=== PATIENT | male | born 1990 | race Caucasian/White ===

== ENCOUNTER → 2020-02-24 10:41 | Outpatient (BNVA) | payer SELFPAY | PROVIDERS: Visit Provider Registered Nurse | DX: Z20.828 Contact with and (suspected) exposure to other viral communicable diseases (principal) | CPT/HCPCS: 87635 ==

== ENCOUNTER 2020-08-12 22:46 | Emergency (ER) | payer SELFPAY ==
[2020-08-12 22:54] VITALS: BP 120/78; PULSE 86; RESP 17; TEMP 36.5; O2SAT 99; BMI 31.2
--- NOTE | 2020-08-12 23:00 | XRR_ITS ---
PROCEDURE INFORMATION: Exam: XR Right Foot Exam date and time: 08/12/2020 11:40 PM Age: 30 years old Clinical indication: Injury or trauma; Other: Dropped a pallet on foot; Work related; Blunt trauma; Toes; Injury details: PT dropped a pallet on his right great toe TECHNIQUE: Imaging protocol: XR Right foot. Views: 3 or more views. COMPARISON: No relevant prior studies available. FINDINGS: Bones/joints: No acute displaced fracture or dislocation. The joint spaces are generally maintained. Bone mineralization is within normal limits for age. Soft tissues: No radiographic abnormalities. XR/XR foot RT min 3V* [id number] IMPRESSION: No acute displaced fracture or dislocation.
--- NOTE | 2020-08-12 23:24 | W.ED.EXTPRO ---
HPI - Extremity Problem General: Chief complaint: Extremity Injury, Lower Stated complaint: foot injury Time Seen by Provider: 08/12/20 23:23 History of Present Illness: HPI Narrative: Patient is a 30-year-old male comes to the ED with right foot injury. Patient says he was at work tonight and he was moving a pallet full of Gatorade and accidentally ran over his right foot. He says the palate wheel rolled over his great toe just proximal to nail bed. He is not sure if he has a cut or dry blood on great toe. That he is having pain in his great toe on right foot. Says he cannot move his great toe currently either. Associated symptoms: Deny chest pain, fever(s) or rash Review of Systems Const: Denies: fever(s), chills or fatigue Eyes: Denies: change in vision or eye discomfort ENMT: Denies: throat pain, odynophagia, nasal discharge or nasal congestion Card: Denies: chest pain, palpitations, edema, swelling of feet/ankles, dyspnea on exertion or orthopnea Resp: Denies: dyspnea, productive cough or non-productive cough GI: Denies: abdominal pain, nausea, vomiting, diarrhea, constipation or hematochezia : Denies: flank pain, difficulty urinating, dysuria or hematuria Musc: Reports: extremity pain (Right foot); Denies: neck pain, back pain or extremity swelling Skin/Breast: Denies: rash or new lesions Neuro: Denies: headache(s), numbness in extremities or weakness in extremities [facility] PFSH: Social History Smoking and tobacco status: current every day smoker Physical Exam Const: COMMON NORMALS: no acute distress, patient oriented x3, healthy appearing and alert GENERAL APPEARANCE: cooperative and comfortable HENMT: COMMON NORMALS: normocephalic HEAD & SCALP: normocephalic MOUTH: Normal oral and palatal mucosa present THROAT: posterior oropharynx normal and uvula midline Neck/C-Spine: COMMON NORMALS: supple GENERAL: Yes normal visual inspection Resp: COMMON NORMALS: normal respiratory effort, No retractions, No use of accessory muscles and clear to auscultation bilaterally AUSCULTATION: clear to auscultation bilaterally Cardio: COMMON NORMALS: regular rate, regular rhythm, S1 normal heart sound present, S2 normal heart sound present, No gallops present (Cardio), No clicks present (Cardio), No murmurs present (Cardio) and Peripheral pulses 2+ throughout RATE: regular rate RHYTHM: regular rhythm HEART SOUNDS: S1 normal heart sound present and S2 normal heart sound present PERIPHERAL PULSES: Peripheral pulses 2+ throughout GI: COMMON NORMALS: Normal to inspection, nondistended, normoactive bowel sounds present, Soft to palpation, non-tender and no masses PALPATION: Yes Soft to palpation : COMMON NORMALS: Yes no CVA tenderness BLADDER/KIDNEY EXAM: Yes no CVA tenderness Back/Pelvis: COMMON NORMALS: no CVA tenderness Extremity: RIGHT LOWER EXTREMITY: Yes foot & digits Right foot and digits: Yes inspection ( great toe dried blood, no lac. Mild swelling no deformity), Yes palpation (Tender to palpation over great toe), Yes ROM (Limited due to pain), Yes neurovascular exam (Intact) and Yes other (No nailbed damage seen.) Neuro: COMMON NORMALS: patient oriented x3 and moves all extremities SENSORIUM/ORIENTATION: Yes alert Skin: GENERAL SKIN EXAM: dry skin Course Vital Signs: Vital signs: Vital Signs Temperature 97.7 F 08/12/20 22:54 Pulse Rate 84 08/13/20 01:38 Respiratory Rate 18 08/13/20 01:38 Blood Pressure 122/76 08/13/20 01:38 Pulse Oximetry 98 08/13/20 01:38 MDM - Extremity (Nontraumatic) Imaging Data^: Xray Ortho: Attestation: I personally reviewed and interpreted this imaging study as follows: Radiologist's impression: [address] [address] XRay Report Signed Patient: Juan F Stout Unit #: [id number] : 1990 Age/Sex: 30 / M ADM Date: 08/12/20 Loc: ER Room/Bed: Attending Dr: Ordering Provider/Ordering MD: Arely Marie MD Date of Service: 08/12/20 Procedure(s): XR foot RT min 3V* [id number] Accession Number(s): [id number] Report Number: [id number] PROCEDURE INFORMATION: Exam: XR Right Foot Exam date and time: 08/12/2020 11:40 PM Age: 30 years old Clinical indication: Injury or trauma; Other: Dropped a pallet on foot; Work related; Blunt trauma; Toes; Injury details: PT dropped a pallet on his right great toe TECHNIQUE: Imaging protocol: XR Right foot. Views: 3 or more views. COMPARISON: No relevant prior studies available. FINDINGS: Bones/joints: No acute displaced fracture or dislocation. The joint spaces are generally maintained. Bone mineralization is within normal limits for age. Soft tissues: No radiographic abnormalities. XR/XR foot RT min 3V* [id number] IMPRESSION: No acute displaced fracture or dislocation. Dictated By: Tera Alcazar Signed By: Tera Alcazar Signed Date/Time: 08/13/2021 DD/ Discharge Plan Discharge Patient Disposition: Home Clinical Impression: Contusion of great toe of right foot Qualifiers: Encounter type: initial encounter Damage to nail status: without damage Qualified Code(s): S90.111A - Contusion of right great toe without damage to nail, initial encounter Condition: Stable Prescriptions: No Action cephalexin [Keflex] 500 mg capsule 500 mg PO Q8H 10 Days Qty: 30 RF: 0 Discharge Orders: Discharge ED (Routine); Ordered 08/13/20 Ordered By: Sumeet Jones Discharge Diet: Regular Discharge Activity: Increase activity as tolerated and Use walker/crutches as instructed Patient Instructions: Foot Contusion (ED) Activity Restrictions/Additional Instructions: Follow-up with medical provider as directed in 7 to 10 days for reevaluation. Use crutches for the next 2 to 3 days to allow for healing then advance weightbearing as tolerated. Rest, ice and elevate right foot and take [id number] ibuprofen or Tylenol for pain. Return to the ER or your medical provider if condition worsens. Please read and understand discharge instructions. Thank you for choosing [facility] for your healthcare needs today. Please realize this is an emergency room and that we are providing you with a medical screening exam and this may not be complete and all inclusive of all the testing and or work up that you may need to determine your ailment or severity of your illness. It is very important that you follow up as instructed or that you return to the Emergency Department should you have concerns or if your condition changes or worsens in any way. Stand Alone Forms: Work/School Release Coding Level of Care Code ED Prize Coordinator for [facility] Fwd Exam Comprehensive
[2020-08-13] MEDS: ibuprofen 800 mg tablet PO (00:35)
[2020-08-13 01:38] VITALS: BP 122/76; PULSE 84; RESP 18; O2SAT 98
== END 2020-08-13 01:20 | disposition home or self-care (01) ==
PROVIDERS: Emergency Provider Physician Assistant
DX: S90.111A Contusion of right great toe without damage to nail, initial encounter (principal); F17.210 Nicotine dependence, cigarettes, uncomplicated; X58.XXXA Exposure to other specified factors, initial encounter
CPT/HCPCS: 73630; 99283; E0114

== ENCOUNTER → 2021-01-05 10:34 | Outpatient (BNVA) | payer OTHER, SELFPAY | PROVIDERS: Visit Provider Registered Nurse | DX: Z20.822 Contact with and (suspected) exposure to COVID-19 (principal) | CPT/HCPCS: 87635 ==

== ENCOUNTER → 2024-01-19 13:12 | Outpatient (BNVA) | payer OTHER, SELFPAY | PROVIDERS: PCP Nurse Practitioner Family; Visit Provider Nurse Practitioner Family | DX: R50.9 Fever, unspecified (principal) | CPT/HCPCS: 87400; 87426 ==